=== PATIENT | female | born 1980 | race Caucasian/White ===

== ENCOUNTER 2016-09-07 12:34 | Outpatient (CLI) | payer OTHER ==
[~2016-09-07] VITALS: Ht 162.6 cm; Wt 117.3 kg
[~2016-09-07 12:34] MED LIST: ALLEGRA 180MG180 MG PO; FOLIC ACID 11 MG/TA1 PO; HUMIRA40 MG/0.1 SQ; METHOTREXA2.5 MG/TAB PO; RT ADVAIR 228 DISKUS IH; SINGULAIR 110 MG/TAB PO; VITAMIN D32000 IU PO
[2016-09-07 13:29] VITALS: BP 139/82; PULSE 83
[2016-09-07 14:45] VITALS: BP 128/70; PULSE 88
[2016-09-07 15:19] VITALS: BP 124/74; PULSE 86
[2016-09-07 16:00] VITALS: BP 113/63; PULSE 87
[2016-09-10 11:57] LABS: ALBUMIN CSF 11.9 mg/dL (<=27.0); CSF IGG/ALBUMIN 0.14 (<=0.21); CSF,IGG 1.7 mg/dL (<=8.1)
[2016-09-10 12:57] LABS: CSF-IGG INDEX 0.54 (<=0.85); IGG/ALBUMIN SERUM 0.26 (<=0.40)
== END 2016-09-07 16:49 | disposition home or self-care (01) ==
LOC: COL.RAD 12:34
PROVIDERS: Psychiatry & Neurology Neurology
DX: G93.2 Benign intracranial hypertension (principal); G35 Multiple sclerosis; R25.1 Tremor, unspecified

== ENCOUNTER 2016-09-09 23:47 | Emergency (ER) | payer OTHER ==
[~2016-09-09] VITALS: Ht 162.6 cm; Wt 115.9 kg
[2016-09-09 23:49] VITALS: BP 141/82; TEMP 98.2
[2016-09-10 01:11] VITALS: PULSE 88
[2016-09-10] MEDS ORDERED: PROAIR HFA0.09 MG/AC IH (10:55)
== END 2016-09-10 01:10 | disposition home or self-care (01) ==
LOC: COL.ER 23:47
DX: G97.1 Other reaction to spinal and lumbar puncture (principal); G35 Multiple sclerosis; J45.909 Unspecified asthma, uncomplicated; Z98.51 Tubal ligation status; Z87.59 Personal history of other complications of pregnancy, childbirth and the puerperium
CPT/HCPCS: J1200; J1885; J2765; J7030

== ENCOUNTER → 2016-09-10 | Outpatient (CLI) | payer OTHER ==
[~2016-09-10] VITALS: Ht 162.7 cm; Wt 116.4 kg
[~2016-09-10] MED LIST changes: +PROAIR HFA0.09 MG/AC IH
[2016-09-10 10:56] VITALS: BP 118/62; PULSE 75; TEMP 97.9
[2016-09-10 11:19] VITALS: BP 118/62; PULSE 75; TEMP 97.9
[2016-09-10 11:40] VITALS: BP 126/83; PULSE 86; TEMP 98.3
[2016-09-10 11:55] VITALS: BP 122/76; PULSE 86; TEMP 98.3
[2016-09-10 12:10] VITALS: BP 126/79; PULSE 89; TEMP 98
[2016-09-10 12:25] VITALS: BP 126/78; PULSE 89; TEMP 98
== END ==
LOC: EUO 10:36
DX: G97.1 Other reaction to spinal and lumbar puncture (principal); Z79.899 Other long term (current) drug therapy; J45.909 Unspecified asthma, uncomplicated